=== PATIENT | male | born 1950 | race Caucasian/White ===

== ENCOUNTER 2022-11-04 09:23 | Emergency (ER) | payer MEDICARE, SELFPAY ==
--- NOTE | ~2022-11-04 | CT_ITS ---
EXAMINATION: CT HEAD WITHOUT CONTRAST CLINICAL INFORMATION: Altered mental status. COMPARISON: None available. TECHNIQUE: Contiguous axial imaging was performed from the skull base to vertex without intravenous administration of contrast. Coronal and sagittal reformatted images were obtained. This CT examination was performed using dose optimization techniques as appropriate, variously including the following: *Automated exposure control *Adjustment of mA and/or kV according to patient size (this includes techniques or standardized protocols for targeted exams where dose is matched to indication/reason for exam; i.e. extremities or head) *Use of iterative reconstruction technique DLP: 711 mGy-cm FINDINGS: There is mild widening of the cortical sulci and associated ventriculomegaly. The lateral ventricles are symmetrical. The third and fourth ventricles are in their normal midline position. The basilar and prepontine cisterns are unremarkable. Incidental empty sella without associated abnormality. Mild periventricular microvascular changes are seen. Left basal ganglia and thalamus lacunar infarcts are noted. There is no acute intra or extracerebral abnormality. There is no mass effect or midline shift. Sections through the bony calvarium are unremarkable. The orbits are intact. The paranasal sinuses show mild mucosal thickening and ethmoid air cells and the left frontal sinus without air-fluid levels. The mastoid air cells are clear. CT/CT head/brain wo IV con IMPRESSION: No acute intracranial pathology.
[2022-11-04 09:28] VITALS: BP 105/58; PULSE 90; RESP 18; TEMP 36.6; O2SAT 98; BMI 23.0
[2022-11-04 09:47] LABS: Basophils Percent Auto 0.3 % (0-2); Eosinophils Absolute Auto 0.5 X10*3/uL (0.0-0.4); Eosinophils Percent Auto 5.7 % (0-4); Hematocrit 33.8 % (42.0-52.0); Hemoglobin 11.2 g/dl (14.0-18.0); Imm Gran Abs Auto 0.04 X10*3/uL (0.00-0.03); Imm Gran Pct Auto 0.5 % (0.0-0.4); Lymphocytes Absolute Auto 0.8 X10*3/uL (1.2-4.9); Lymphocytes Percent Auto 9.5 % (20-40); MANUAL DIFF FLAG NO; Mean Corpuscular HGB Conc 33.1 g/dl (31.0-36.0); Mean Corpuscular Hemoglobin 30.4 pg (27.0-33.0); Mean Corpuscular Volume 91.6 fL (80.0-98.0); Mean Platelet Volume 8.9 fL (9.4-12.4); Monocytes Absolute Auto 0.8 X10*3/uL (0.1-1.2); Monocytes Percent Auto 9.7 % (2-11); Neutrophils Absolute Auto 5.9 x10*3/uL (2.0-8.3); Neutrophils Percent Auto 74.3 % (45-73); Platelet Count 331 X10*3/uL (160-400); Red Blood Count 3.69 X10*6/uL (4.60-5.80); Red Cell Distribution Width 12.7 % (11.0-16.0); White Blood Count 7.9 X10*3/uL (4.8-10.8)
[2022-11-04 10:07] LABS: Alanine Aminotransferase 19 U/L (0-40); Albumin Level 3.8 g/dL (3.5-5.0); Alkaline Phosphatase 72 U/L (39-117); Anion Gap 11 (12-20); Aspartate Amino Transferase 20 U/L (5-37); Bilirubin Direct 0.2 mg/dL (0.0-0.5); Bilirubin Total 0.7 mg/dL (0.0-1.0); Blood Urea Nitrogen 11 mg/dL (9-16); Calcium 8.9 mg/dL (8.4-10.2); Carbon Dioxide 27 mmol/L (22-29); Chloride 108 mmol/L (96-108); Creatinine Clr Calc Pharmacy 61.2; Estimated Glomerular Filt Rate > 60; Glucose Random 101 mg/dL (60-115); Lipase 45 U/L (8-78); Potassium 4.4 mmol/L (3.3-5.1); Sodium 142 mmol/L (135-145); Total Protein 6.4 g/dL (6.5-8.0)
--- NOTE | 2022-11-04 10:38 | ED_ITS ---
HPI - General Adult General Chief complaint: General Medical Stated complaint: Aggressive behavior/Dementia? 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 Family reports that patient recently moved to the area from [place] last week as his niece had noticed that his mental status has declined and they are seeking better medical care to better manage his symptoms. The family believes that patient has dementia but has not been formally diagnosed with this before. Family also reports that 2 days ago his upper extremities were shaking for several minutes and resolved on its own. Patient denies any chest pain, shortness of breath, headache, dizziness, abdominal pain, dysuria/hematuria, constipation or diarrhea. Patient has no complaints and has no current concerns. No other complaints or concerns at this time. MD complaint: Altered mental status Onset (ago): month(s) Relieving factors: none Exacerbating factors: none Associated symptoms: confusion Treatments prior to arrival: none Related Data Previous Rx's Medication Instructions Recorded apixaban 5 mg tablet 5 mg PO BID #60 tabs 11/04/22 enalapril maleate 10 mg tablet 10 mg PO BID #60 tabs 11/04/22 escitalopram oxalate 10 mg tablet 10 mg PO DAILY #30 tabs 11/04/22 finasteride 5 mg tablet 5 mg PO DAILY #30 tabs 11/04/22 metoprolol succinate 200 mg 200 mg PO DAILY #30 tabs 11/04/22 tablet,extended release 24 hr (Toprol XL) nifedipine 30 mg tablet,extended 30 mg PO DAILY #30 tabs 11/04/22 release 24 hr (Procardia XL) quetiapine 25 mg tablet 25 mg PO BEDTIME #30 tabs 11/04/22 simvastatin 20 mg tablet 20 mg PO BEDTIME #30 tabs 11/04/22 temazepam 30 mg capsule 30 mg PO BEDTIME PRN sleep #30 caps 11/04/22 Allergies Allergy/AdvReac Type Severity Reaction Status Date / Time No Known Allergies Allergy Verified 11/04/22 09:32 [No Known Allergies*] Review of Systems Constitutional: Constitutional: Denies chills, Denies fever(s) and Denies headache(s) Eyes: Eyes: Denies change in vision, Denies decreased night vision, Denies dry eyes, Denies itchy eyes and Denies loss of vision ENT: Reports Normal hearing present, Denies dysphagia, Denies headache(s), Denies mouth pain, Denies nasal congestion, Denies nasal discharge, Denies nasal obstruction, Denies neck pain, Denies nose pain and Denies sore throat Cardiovascular: Cardiovascular: Denies chest pain, Denies syncope, Denies pedal edema, Denies leg edema and Denies dyspnea Respiratory: Respiratory: Denies cough, Denies dyspnea and Denies wheezing Gastrointestinal: Gastrointestinal: Denies abdominal pain, Denies dysphagia, D enies diarrhea and Denies vomiting Genitourinary: Genitourinary: Denies difficulty urinating, Denies dysuria and Denies urinary hesitancy Musculoskeletal: Musculoskeletal: Denies neck pain Neurologic: Reports Normal hearing present, Denies syncope, Denies headache(s) and Denies loss of vision Allergic/Immunologic: Allergic/Immunologic: Denies itchy eyes and Denies wheezing PMF Past Medical History Attestation statement: The following information was validated with the patient. Source: old records reviewed and obtained from family Physical Exam ED Vital Signs: Vital Signs - 24 hr 11/04/22 09:28 11/04/22 11:53 11/04/22 15:16 Temperature 97.8 F 98.1 F 98.9 F Pulse Rate 90 87 83 Respiratory Rate 18 14 15 Blood Pressure 105/58 L 119/67 118/66 Pulse Oximetry 98 97 97 Oxygen Delivery Method Room Air Room Air Room Air BMI result Body Mass Index 23.0 Const General: cooperative, comfortable, no acute distress and alert Orientation/consciousness: oriented to person, oriented to place, oriented to time and patient oriented x3 Limitations: language barrier HENMT Head: Yes normal to inspection, Yes normocephalic and Yes atraumatic Ears: hearing grossly normal bilaterally, external ears normal and TM's normal bilaterally General nose exam: Normal nares present and Normal nasal mucous membranes and turbinates present Face and sinus: Yes normal facial exam and Yes face symmetric Mouth: Normal oral and palatal mucosa present, tongue normal and moist mucous membranes Teeth and gingiva: poor dentition Throat: Yes posterior oropharynx normal and Yes uvula midline Eyes General: appearance normal, both eyes and all related structures Conjunctivae: conjunctivae normal Pupils: Equal, round and reactive pupils present EOM: EOMs intact bilaterally Neck Neck: Yes full ROM and Yes no lymphadenopathy Resp Effort & Inspection: normal respiratory effort and able to speak in complete sentences Auscultation: clear to auscultation bilaterally, no crackles, no rales and no rhonchi Cardio Other: irregularly irregular Heart sounds: S1 normal heart sound present and S2 normal heart sound present GI Other: Abdomen is soft, nontender, nondistended. Palpation (GI): Soft to palpation Neuro Other: Smile is symmetric, 5/5 strength in Upper and lower extremities. General: oriented to person, oriented to place, oriented to time and patient oriented x3 Cranial nerves: Yes CN's II-XII intact bilaterally, Yes Equal, round and reactive pupils present, Yes Bilaterally intact EOM present, Yes Nystagmus not present and Yes Normal hearing present Gait exam (Neuro): Normal gait present Motor exam (neuro): 5/5 motor strength present throughout Extrem General: Yes normal to inspection, Yes capillary refill normal and Yes no pedal edema Course Reevaluation(s) Reevaluation #1: Urinalysis negative for infection, CT head unremarkable. EKG shows a. fib with no acute ischemic changes noted. All other lab work is unremarkable. Discussed results with patient and family. Will have Case Management work on setting up services/financial planning in the area for primary care for further management. Will refill patient's medications that he ran out of today. Family understands and agrees with plan. No questions at this time. Time: 12:46 Reevaluation #2: Cheli from case management saw patient, of discussion, patient was seen at a psychiatry hospital in [place], where he was not given a full workup for dementia and did not discharge him on his medications he takes at home. Added these medications to his medication list and sent to [facility]. Time: 14:13 Reevaluation #3: patient and family met with case management and will follow up outpatient. Vital signs stable, patient requesting food, and wanting to go home. Patient stable f or discharge. Time: 15:49 Medical Decision Making Medical Decision Making MDM Narrative: 72 yo M, hx of hypertension, anxiety, and a-fib on eliquis, who presents to the ER, accompanied by family, with concerns for increasing aggression and anxiety, family believes that he is developing dementia but has not been formally diagnosed. Recent relocation to this area for better medical care. Requesting more follow up care with primary care. On examination, patient is alert and oriented to person, but well appearing, VSS in room. Patient appears comfortable. Patient has no current pain or concerns. Family reports that they feel as though they can take care of him at home, but looking for more resources for outpatient follow-up. Plan: Labs, EKG, UA, and Head CT ordered. Differential Diagnosis Differential Diagnoses: The differential diagnosis associated with the presentation includes UTI, ICH, dehydration, electrolyte abnormality Lab Data MDM Lab Attestation statement: I reviewed the patient's lab results. 11/04/22 09:42 11/04/22 09:42 Labs: Lab Results 11/04/22 11/04/22 11/04/22 Range/Units 09:42 09:42 11:40 WBC 7.9 (4.8-10.8) X10*3/uL RBC 3.69 L (4.60-5.80) X10*6/uL Hgb 11.2 L (14.0-18.0) g/dl Hct 33.8 L (42.0-52.0) % MCV 91.6 (80.0-98.0) fL MCH 30.4 (27.0-33.0) pg MCHC 33.1 (31.0-36.0) g/dl RDW 12.7 (11.0-16.0) % Plt Count 331 (160-400) X10*3/uL MPV 8.9 L (9.4-12.4) fL Immature Gran % (Auto) 0.5 H (0.0-0.4) % Neut % (Auto) 74.3 H (45-73) % Lymph % (Auto) 9.5 L (20-40) % [place] % (Auto) 9.7 (2-11) % Eos % (Auto) 5.7 H (0-4) % Baso % (Auto) 0.3 (0-2) % Lymph # (Auto) 0.8 L (1.2-4.9) X10*3/uL [place] # (Auto) 0.8 (0.1-1.2) X10*3/uL Eos # (Auto) 0.5 H (0.0-0.4) X10*3/uL Baso # (Auto) 0.0 (0.0-0.2) X10*3/uL Abs Immat Gran (auto) 0.04 H (0.00-0.03) X10*3/uL Absolute Neuts (auto) 5.9 (2.0-8.3) x10*3/uL Absolute Nucleated RBC 0.000 (0.0-0.012) X10*3/uL Nucleated RBC % (auto) 0.0 (0.0-0.2) /100WBC Sodium 142 (135-145) mmol/L Potassium 4.4 (3.3-5.1) mmol/L Chloride 108 (96-108) mmol/L Carbon Dioxide 27 (22-29) mmol/L Anion Gap 11 L (12-20) BUN 11 (9-16) mg/dL Creatinine 0.90 (0.5-1.4) mg/dL Estim Creat Clear Calc 61.2 Estimated GFR > 60 Random Glucose 101 (60-115) mg/dL Calcium 8.9 (8.4-10.2) mg/dL Total Bilirubin 0.7 (0.0-1.0) mg/dL Direct Bilirubin 0.2 (0.0-0.5) mg/dL AST 20 (5-37) U/L ALT 19 (0-40) U/L Alkaline Phosphatase 72 (39-117) U/L Total Protein 6.4 L (6.5-8.0) g/dL Albumin 3.8 (3.5-5.0) g/dL Lipase 45 (8-78) U/L Urine Color Urine Appearance Urine pH (5.0-9.0) Ur Specific [place] (1.005-1.025) Urine Protein (Neg-Trace) mg/dL Urine Glucose (UA) (Negative) mg/dL Urine Ketones (Negative) mg/dL Urine Blood (Negative) Urine Nitrite (Negative) Ur Leukocyte Esterase (Negative) COVID-19 (JENNIFER) Positive A (Negative) COVID-19 Clin Com See Note 03/28/23 Range/Units 11:40 WBC (4.8-10.8) X10*3/uL RBC (4.60-5.80) X10*6/uL Hgb (14.0-18.0) g/dl Hct (42.0-52.0) % MCV (80.0-98.0) fL MCH (27.0-33.0) pg MCHC (31.0-36.0) g/dl RDW (11.0-16.0) % Plt Count (160-400) X10*3/uL MPV (9.4-12.4) fL Immature Gran % (Auto) (0.0-0.4) % Neut % (Auto) (45-73) % Lymph % (Auto) (20-40) % [place] % (Auto) (2-11) % Eos % (Auto) (0-4) % Baso % (Auto) (0-2) % Lymph # (Auto) (1.2-4.9) X10*3/uL [place] # (Auto) (0.1-1.2) X10*3/uL Eos # (Auto) (0.0-0.4) X10*3/uL Baso # (Auto) (0.0-0.2) X10*3/uL Abs Immat Gran (auto) (0.00-0.03) X10*3/uL Absolute Neuts (auto) (2.0-8.3) x10*3/uL Absolute Nucleated RBC (0.0-0.012) X10*3/uL Nucleated RBC % (auto) (0.0-0.2) /100WBC Sodium (135-145) mmol/L Potassium (3.3-5.1) mmol/L Chloride (96-108) mmol/L Carbon Dioxide (22-29) mmol/L Anion Gap (12-20) BUN (9-16) mg/dL Creatinine (0.5-1.4) mg/dL Estim Creat Clear Calc Estimated GFR Random Glucose (60-115) mg/dL Calcium (8.4-10.2) mg/dL Total Bilirubin (0.0-1.0) mg/dL Direct Bilirubin (0.0-0.5) mg/dL AST (5-37) U/L ALT (0-40) U/L Alkaline Phosphatase (39-117) U/L Total Protein (6.5-8.0) g/dL Albumin (3.5-5.0) g/dL Lipase (8-78) U/L Urine Color Yellow Urine Appearance Clear Urine pH 7.0 (5.0-9.0) Ur Specific [place] 1.020 (1.005-1.025) Urine Protein Negative (Neg-Trace) mg/dL Urine Glucose (UA) Negative (Negative) mg/dL Urine Ketones Negative (Negative) mg/dL Urine Blood Negative (Negative) Urine Nitrite Negative (Negative) Ur Leukocyte Esterase Negative (Negative) COVID-19 (JENNIFER) (Negative) COVID-19 Clin Com Independent Interpretation I performed an independent interpretation of an: EKG and CT Scan Interpretation: EKG shows atrial fibrillation, irregularly irregular at a ventricular rate of 97 beats per minute, QT/QTC 332/421 CT head reviewed by me and I agree with the radiologist's report. Radiology Impression Discussion of test interpretation with radiology: I have reviewed the radiologist's reading. Radiologist Impression: FINDINGS: There is mild widening of the cortical sulci and associated ventriculomegaly. The lateral ventricles are symmetrical. The third and fourth ventricles are in their normal midline position. The basilar and prepontine cisterns are unremarkable. Incidental empty sella without associated abnormality. Mild periventricular microvascular changes are seen. Left basal ganglia and thalamus lacunar infarcts are noted. There is no acute intra or extracerebral abnormality. There is no mass effect or midline shift. Sections through the bony calvarium are unremarkable. The orbits are intact. The paranasal sinuses show mild mucosal thickening and ethmoid air cells and the left frontal sinus without air-fluid levels. The mastoid air cells are clear. CT/CT head/brain wo IV con IMPRESSION: No acute intracranial pathology. Dictated By: Clifford Crump MD Independent Historian Clinical information obtained from an independent historian. History obtained from or confirmed by: Other (Family) Chronic Conditions Patient?s care impacted by: Hypertension and Other (a fib on eliquis) Discharge Plan Discharge Clinical Impression: COVID-19 Change in mental status Qualifiers: Altered mental status type: unspecified Qualified Code(s): R41.82 - Altered mental status, unspecified Patient Disposition: Home, Self-Care Instructions: Altered Mental Status (ED), COVID-19 (Coronavirus Disease 2019) (ED) Additional Instructions: Your COVID-19 testing was positive today. Your head CT was normal today. Please follow up with the resources provided by case management today. Drink plenty of fluids and get plenty of rest. We had refilled your medications that you ran out of today. Please have these medications filled by your primary care physician once you have this established. If any new or worsening symptoms occur, please return for re-evaluation. Prescriptions: New quetiapine 25 mg tablet 25 mg PO BEDTIME Qty: 30 0RF escitalopram oxalate 10 mg tablet 10 mg PO DAILY Qty: 30 0RF apixaban 5 mg tablet 5 mg PO BID Qty: 60 0RF enalapril maleate 10 mg tablet 10 mg PO BID Qty: 60 0RF nifedipine [Procardia XL] 30 mg tablet extended release 24hr 30 mg PO DAILY Qty: 30 0RF metoprolol succinate [Toprol XL] 200 mg tablet extended release 24 hr 200 mg PO DAILY Qty: 30 0RF simvastatin 20 mg tablet 20 mg PO BEDTIME Qty: 30 0RF finasteride 5 mg tablet 5 mg PO DAILY Qty: 30 0RF temazepam 30 mg capsule 30 mg PO BEDTIME PRN (Reason: sleep) Qty: 30 0RF Interventions: ED Discharge Assessment Last Done: 11/04/22 15:42 Discharge Date/Time: 11/04/22 15:43 Print Language: Bengali
--- NOTE | 2022-11-04 11:08 | ECG_ITS ---
Test Reason : HX OF AFIB Blood Pressure : / mmHG Vent. Rate : 097 BPM Atrial Rate : 000 BPM P-R Int : 000 ms QRS Dur : 074 ms QT Int : 332 ms P-R-T Axes : 000 -11 -25 degrees QTc Int : 421 ms Atrial fibrillation Inferior infarct (cited on or before 26-AUG-2017) Cannot rule out Anterior infarct , age undetermined Abnormal ECG When compared with ECG of 26-AUG-2017 13:37, Atrial fibrillation has replaced Sinus rhythm Referred By: Rosie Negron Electronically Signed By:JOSÉ NELSON
[2022-11-04 11:48] LABS: Appearance Urine Clear; Color Urine Yellow; Glucose Urine UA Negative (Negative); Leukocyte Esterase Urine Negative (Negative); Nitrite Urine Negative (Negative); Urine Blood Negative (Negative); Urine Ketones Negative (Negative); Urine Protein Negative (Neg-Trace)
[2022-11-04 11:53] VITALS: BP 119/67; PULSE 87; RESP 14; TEMP 36.7; O2SAT 97
[2022-11-04 12:04] LABS: COVID-19 Test Positive (Negative); IDNOW Serial# BCCEAD1C
[2022-11-04 15:16] VITALS: BP 118/66; PULSE 83; RESP 15; TEMP 37.2; O2SAT 97
--- NOTE | 2022-11-04 15:25 | MHC.CM.ED ---
Addendum entered by Gladys Yu 11/05/22 07:42: Late entry from 11/04/2022 at 1600: Patient, , daughter are primarily Danish speaking. Granddaughter speaks Danish and Mongolian. 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 Per family, patient does not always remember who his is. Inappropriate to complete HCP at this time. Original Note: Received case management from [facility]. Patient was brought to the ER from family due to aggressive behavior and question of dementia. Work up essentially negative. Met with patient, Soumya, daughter Jessica and granddaughter Melody. Patient came to [facility] from [place] on Thursday. Patient still has commercial [employer] insurance. Has no PCP established in [facility]. While in [place], family was trying to get patient worked up for dementia due to increased confusion and increased aggression. Family states they sent him to a psych doctor and didn't perform any dementia testing. Family decided to bring him to [facility]. Patient wad admitted to a inpatient psych hospital on 10/20-10/26. Paperwork was provided to CM from family. It is primarily in Danish. With the help of a Medical Research Associate, patient was admitted to their facility for depression. Patient participated in therapy and received medications without side effects. Patient was alert and oriented. Provider recommended getting an urgent appointment with a neurologist in [place]. T/W explained to patient and family that they would need to speak with [facility] Counsel[facility] about obtaining [facility]. Also explained patient's insurance might not cover medications in [facility]. Information on contacting [facility] financial counselors, [facility] and [facility] provided. Patient and family verbalized understanding. Patient currently doesn't have any of his home medications. He ran out. Family requested medication be sent to [facility]. Rosie CARY and will order home meds. Family will transport patient home. Continue to monitor for d/c needs.
== END 2022-11-04 15:43 | disposition home or self-care (01) ==
PROVIDERS: Physician Assistant Medical; Emergency Provider Emergency Medicine
DX: U07.1 COVID-19 (principal); R41.82 Altered mental status, unspecified; I10 Essential (primary) hypertension; I48.91 Unspecified atrial fibrillation; Z79.01 Long term (current) use of anticoagulants; Z79.02 Long term (current) use of antithrombotics/antiplatelets; Z79.899 Other long term (current) drug therapy
CPT/HCPCS: 36415; 70450; 80048; 80076; 81003; 83690; 85025; 87635; 93005; 99284